=== PATIENT | male | born 2000 | race Two or more races ===

== ENCOUNTER 2023-04-21 20:44 | Emergency (ER) | payer SELFPAY ==
[2023-04-21 20:49] VITALS: BP 115/81; PULSE 65; RESP 18; TEMP 98.1; BMI 23.7
[2023-04-21] MEDS ORDERED: TETRACAINE 0.5% HCL 0.6ML DROPPER.BOTTLE OS ONE (22:04)
[2023-04-21] MEDS ORDERED: FLUORESCEIN NA 1 EA STRIP OS ONE (22:04)
[2023-04-21] MEDS ORDERED: FLUORESCEIN NA 1 EA STRIP ONE (22:06)
[2023-04-21] MEDS ORDERED: TETRACAINE 0.5% OPHTH SOLN 2 ML BOTTLE ONE (22:07)
[2023-04-21] MEDS ORDERED: ERYTHROMYCIN 0.5% OPHTHALMIC OINTMENT 3.5 GM TUBE OS ONE (22:32)
[2023-04-21] MEDS ORDERED: ERYTHROMYCIN 0.5% OPHTHALMIC OINTMENT 3.5 GM TUBE ONE (22:33)
[2023-04-22] MEDS ORDERED: ERYTHROMYCIN 0.5% OPHTHALMIC OINTMENT 3.5 GM TUBE OS SCH (10:00)
== END 2023-04-21 22:40 | disposition home or self-care (01) ==
LOC: JERFT 20:44
DX: T26.92XA Corrosion of left eye and adnexa, part unspecified, initial encounter (principal); H57.89 Other specified disorders of eye and adnexa; X58.XXXA Exposure to other specified factors, initial encounter; Y93.E5 Activity, floor mopping and cleaning; Y92.009 Unspecified place in unspecified non-institutional (private) residence as the place of occurrence of the external cause
CPT/HCPCS: 99283-25